=== PATIENT | female | born 1945 | race Caucasian/White ===

== ENCOUNTER 2023-07-20 09:55 | Inpatient (IN) | payer MEDICARE, OTHER ==
[2023-07-20 10:34] LABS: HEMATOCRIT 32.6 % (34.2-48.2); HEMOGLOBIN 10.8 g/dL (11.4-15.5); MEAN CORPUSCULAR HEMOGLOBIN 30.1 pg (23.9-33.9); MEAN CORPUSCULAR VOLUME 91.2 fL (76.7-100.5); MEAN PLATELET VOLUME 7.2 fL (7.1-12.4); PLATELET COUNT,PLT 128 x10(3)uL (151-488); RED BLOOD CELL COUNT 3.58 x10(6)uL (3.60-5.20); WHITE BLOOD CELL COUNT,WBC 8.8 x10-3/uL (3.0-10.3)
[2023-07-20] MEDS: Sodium Chloride 0.9% 1,000 ML IV SCH ×2 (10:35→16:38)
[2023-07-20 10:41] LABS: BLOOD UREA NITROGEN,BUN 41 mg/dL (7-18); BUN/CREATININE RATIO 37.3 (9-20); CARBON DIOXIDE,CO2 27 mmol/L (21-32); CHLORIDE,CL 98 mmol/L (100-110); CREATININE 1.1 mg/dL (0.55-1.02); ESTIMATED GFR 51 mL/min (>60); GLUCOSE RANDOM 110 mg/dL (80-116); POTASSIUM,K 4.4 mmol/L (3.5-5.3); SODIUM,NA 133 mmol/L (135-145)
[2023-07-20] MEDS: Morphine 4 MG/ML VIAL IVPUSH ONE (10:45)
[2023-07-20 10:47] LABS: A/G RATIO 0.6; ALANINE AMINOTRANSFERASE,ALT 64 U/L (12-36); ALBUMIN 2.6 g/dL (3.2-4.6); ALKALINE PHOSPHATASE 134 IU/L (56-112); ASPARTATE AMNIOTRANSFERASE,AST 72 IU/L (5-25); BILIRUBIN TOTAL 0.7 mg/dL (0.1-1.3); CREATINE KINASE,CK 38 IU/L (60-160); PROTEIN TOTAL,TP 6.8 g/dL (6.0-8.0)
[2023-07-20 10:55] LABS: LYMPHOCYTES PERCENT MAN 5 % (13-37); MONOCYTES PERCENT MAN 8 % (4-12); SEG NEUTROPHILS PERCENT MAN 87 % (46-82)
[2023-07-20 11:30] LABS: BILIRUBIN,URINE NEGATIVE (NEGATIVE); GLUCOSE,URINE NORMAL (NORMAL); KETONES,URINE NEGATIVE (NEGATIVE); LEUKOCYTE ESTERASE,URINE LARGE (NEGATIVE); NITRITE,URINE NEGATIVE (NEGATIVE); OCCULT BLOOD,URINE NEGATIVE (NEGATIVE); PROTEIN,URINE NEGATIVE (NEGATIVE); UROBILINOGEN,URINE NORMAL (NEGATIVE)
[2023-07-20 11:31] LABS: APPEARANCE,URINE SLIGHTLY CLOUDY (CLEAR); COLOR,URINE YELLOW (YELLOW); RBC,URINE NOT SEEN (0-5)
[2023-07-20 11:32] LABS: BACTERIA,URINE MODERATE (NS); SQUAMOUS EPITHELIAL CELLS,UR RARE (NS,R,O)
[2023-07-20] MEDS: Cyclobenzaprine 10 MG Tab PO ONE (12:55)
[2023-07-20] MEDS: HYDROmorphone 2 MG/ML SDV IVPUSH STA (14:02)
[2023-07-20] MEDS: cefTRIAXone 1 GM Vial IVPUSH SCH (16:49)
[2023-07-20] MEDS ORDERED: Sennosides/Docusate Sodium 50-8.6 MG Tab PO PRN (17:48)
[2023-07-20] MEDS ORDERED: Ondansetron 4 MG/2 ML SDV IV PRN (17:48)
[2023-07-20] MEDS: Carvedilol 25 MG Tab PO SCH (18:03)
[2023-07-20] MEDS: atorvaSTATin 20 MG Tab PO SCH (21:31)
[2023-07-20] MEDS: Gabapentin 300 MG Cap PO SCH (21:31)
[2023-07-20] MEDS: Apixaban 5 MG Tab PO SCH (21:31)
[2023-07-21] MEDS: Acetaminophen/HYDROcodone 325-5 MG Tab PO PRN (03:09)
[2023-07-21 06:03] LABS: HEMATOCRIT 32.2 % (34.2-48.2); HEMOGLOBIN 10.5 g/dL (11.4-15.5); MEAN CORPUSCULAR HEMOGLOBIN 29.8 pg (23.9-33.9); MEAN CORPUSCULAR HGB CONC 32.5 g/dL (31.9-34.8); MEAN CORPUSCULAR VOLUME 91.9 fL (76.7-100.5); MEAN PLATELET VOLUME 7.6 fL (7.1-12.4); PLATELET COUNT,PLT 111 x10(3)uL (151-488); RED BLOOD CELL COUNT 3.51 x10(6)uL (3.60-5.20); WHITE BLOOD CELL COUNT,WBC 11.1 x10-3/uL (3.0-10.3)
[2023-07-21 06:16] LABS: A/G RATIO 0.6; ALANINE AMINOTRANSFERASE,ALT 52 U/L (12-36); ALBUMIN 2.3 g/dL (3.2-4.6); ALKALINE PHOSPHATASE 131 IU/L (56-112); ASPARTATE AMNIOTRANSFERASE,AST 55 IU/L (5-25); BILIRUBIN TOTAL 0.5 mg/dL (0.1-1.3); BLOOD UREA NITROGEN,BUN 35 mg/dL (7-18); BUN/CREATININE RATIO 31.8 (9-20); CALCIUM 8.4 mg/dL (8.6-10.2); CARBON DIOXIDE,CO2 27 mmol/L (21-32); CHLORIDE,CL 100 mmol/L (100-110); CREATININE 1.1 mg/dL (0.55-1.02); EST CRCL DRUG DOSING (CG) 35.81 mL/min; ESTIMATED GFR 51 mL/min (>60); GLUCOSE RANDOM 92 mg/dL (80-116); POTASSIUM,K 4.4 mmol/L (3.5-5.3); PROTEIN TOTAL,TP 6.5 g/dL (6.0-8.0); SODIUM,NA 133 mmol/L (135-145)
[2023-07-21 06:19] LABS: LYMPHOCYTES PERCENT MAN 4 % (13-37); MONOCYTES PERCENT MAN 5 % (4-12); SEG NEUTROPHILS PERCENT MAN 91 % (46-82)
[2023-07-21] MEDS ORDERED: oxyCODONE 5 MG Tab PO SCH (08:45)
[2023-07-21] MEDS ORDERED: Gabapentin 600 MG Tab PO SCH (09:00)
[2023-07-21] MEDS: Cyclobenzaprine 10 MG Tab PO SCH (09:59)
[2023-07-21] MEDS: Aspirin 81 MG Tab.EC PO SCH (09:59)
[2023-07-21] MEDS: Multivitamins with Iron/Calcium/Folic Acid/Minerals Tab PO SCH (10:00)
[2023-07-21] MEDS: Calcium Carbonate 500 MG Tablet PO SCH (10:00)
[2023-07-21] MEDS: oxyCODONE 5 MG Tab PO SCH (10:13)
[2023-07-21] MEDS: Gabapentin 600 MG Tab PO SCH (10:14)
[2023-07-21] MEDS: Acetaminophen 650 MG Tab.ER PO SCH (10:21)
[2023-07-21] MEDS: Sodium Chloride 0.9% 10 ML Syringe FLUSH PRN (15:58)
[2023-07-21] MEDS: atorvaSTATin 10 MG Tab PO SCH (22:22)
[2023-07-22 06:42] LABS: HEMATOCRIT 27.9 % (34.2-48.2); HEMOGLOBIN 9.3 g/dL (11.4-15.5); MEAN CORPUSCULAR HEMOGLOBIN 30.3 pg (23.9-33.9); MEAN CORPUSCULAR HGB CONC 33.2 g/dL (31.9-34.8); MEAN CORPUSCULAR VOLUME 91.4 fL (76.7-100.5); MEAN PLATELET VOLUME 8.1 fL (7.1-12.4); PLATELET COUNT,PLT 97 x10(3)uL (151-488); RED BLOOD CELL COUNT 3.05 x10(6)uL (3.60-5.20); WHITE BLOOD CELL COUNT,WBC 7.9 x10-3/uL (3.0-10.3)
[2023-07-22 06:50] LABS: A/G RATIO 0.5; ALANINE AMINOTRANSFERASE,ALT 38 U/L (12-36); ALKALINE PHOSPHATASE 128 IU/L (56-112); ASPARTATE AMNIOTRANSFERASE,AST 38 IU/L (5-25); BILIRUBIN TOTAL 0.4 mg/dL (0.1-1.3); BLOOD UREA NITROGEN,BUN 36 mg/dL (7-18); BUN/CREATININE RATIO 32.7 (9-20); CALCIUM 8.6 mg/dL (8.6-10.2); CARBON DIOXIDE,CO2 28 mmol/L (21-32); CHLORIDE,CL 97 mmol/L (100-110); CREATININE 1.1 mg/dL (0.55-1.02); EST CRCL DRUG DOSING (CG) 35.81 mL/min; ESTIMATED GFR 51 mL/min (>60); GLUCOSE RANDOM 100 mg/dL (80-116); POTASSIUM,K 4.5 mmol/L (3.5-5.3); PROTEIN TOTAL,TP 5.9 g/dL (6.0-8.0); SODIUM,NA 131 mmol/L (135-145)
[2023-07-22 07:07] LABS: BAND PERCENT MAN 1 % (0-6); EOSINOPHILS PERCENT MAN 1 % (0-5); LYMPHOCYTES PERCENT MAN 14 % (13-37); MONOCYTES PERCENT MAN 9 % (4-12); SEG NEUTROPHILS PERCENT MAN 75 % (46-82)
[2023-07-22] MEDS ORDERED: oxyCODONE 5 MG Tab PO PRN ×2 (08:48→11:10)
[2023-07-22] MEDS: traMADol 50 MG Tab PO PRN (18:31)
[2023-07-22] MEDS: Baclofen 10 MG Tab PO SCH (21:38)
[2023-07-23 06:47] LABS: BASOPHILS PERCENT AUTO 0.6 % (0.2-1.5); EOSINOPHILS ABSOLUTE AUTO 0.1 x10-3/uL (0.0-0.8); EOSINOPHILS PERCENT AUTO 1.9 % (0.6-8.1); HEMATOCRIT 31.8 % (34.2-48.2); HEMOGLOBIN 10.5 g/dL (11.4-15.5); LYMPHOCYTES ABSOLUTE AUTO 0.9 x10-3/uL (1.0-4.4); LYMPHOCYTES PERCENT AUTO 12.3 % (18.4-52.1); MEAN CORPUSCULAR HEMOGLOBIN 30.2 pg (23.9-33.9); MEAN CORPUSCULAR HGB CONC 33.1 g/dL (31.9-34.8); MEAN CORPUSCULAR VOLUME 91.1 fL (76.7-100.5); MEAN PLATELET VOLUME 7.2 fL (7.1-12.4); MONOCYTES ABSOLUTE AUTO 1.1 x10-3/uL (0.3-1.0); MONOCYTES PERCENT AUTO 15.1 % (4.4-15.7); NEUTROPHILS PERCENT AUTO 70.1 % (30.8-76.2); PLATELET COUNT,PLT 135 x10(3)uL (151-488); RED BLOOD CELL COUNT 3.48 x10(6)uL (3.60-5.20); RED CELL DISTRIBUTION WIDTH 15.6 % (12.3-16.5); WHITE BLOOD CELL COUNT,WBC 7.1 x10-3/uL (3.0-10.3)
[2023-07-23 06:51] LABS: BLOOD UREA NITROGEN,BUN 26 mg/dL (7-18); CARBON DIOXIDE,CO2 29 mmol/L (21-32); CHLORIDE,CL 101 mmol/L (100-110); EST CRCL DRUG DOSING (CG) 39.39 mL/min; ESTIMATED GFR 57 mL/min (>60); GLUCOSE RANDOM 97 mg/dL (80-116); POTASSIUM,K 4.6 mmol/L (3.5-5.3); SODIUM,NA 136 mmol/L (135-145)
[2023-07-23] MEDS: Ketorolac 30 MG/ML SDV IVPUSH SCH (17:04)
[2023-07-23 19:47] VITALS: BP 155/75; PULSE 61
== END 2023-07-23 19:08 | DRG 73 ==
LOC: FB.ED 09:55 → FB.MS 17:59
PROVIDERS: ADMIT Emergency Medicine; ATTEND Family Medicine
DX: G83.4 Cauda equina syndrome (principal); G92.8 Other toxic encephalopathy; I48.19 Other persistent atrial fibrillation; I42.0 Dilated cardiomyopathy; N39.0 Urinary tract infection, site not specified; E87.1 Hypo-osmolality and hyponatremia; Z68.43 Body mass index [BMI] 50.0-59.9, adult; S30.0XXA Contusion of lower back and pelvis, initial encounter; M54.41 Lumbago with sciatica, right side; R33.9 Retention of urine, unspecified; W07.XXXA Fall from chair, initial encounter; E78.5 Hyperlipidemia, unspecified; K42.9 Umbilical hernia without obstruction or gangrene; E66.01 Morbid (severe) obesity due to excess calories; D64.9 Anemia, unspecified; I11.0 Hypertensive heart disease with heart failure; E86.0 Dehydration; I50.9 Heart failure, unspecified; Z88.0 Allergy status to penicillin; Z88.1 Allergy status to other antibiotic agents; Z79.82 Long term (current) use of aspirin; Z79.01 Long term (current) use of anticoagulants; Z95.0 Presence of cardiac pacemaker; Z96.659 Presence of unspecified artificial knee joint; Z79.899 Other long term (current) drug therapy; W01.0XXA Fall on same level from slipping, tripping and stumbling without subsequent striking against object, initial encounter
CPT/HCPCS: 36415; 51701; 51702; 72125; 72128; 72131; 73521; 73560-50; 80048; 80053; 81001; 82550; 83880; 84484; 85025; 87086; 93005; 93010; 96361; 96374; 96375; 97161-GP; 97165-GO; 97530-GP; 99222; 99232; 99239; 99285; 99285-25; A9270-GY; C1758; J0696; J1170; J2270; J3490; J7030

== ENCOUNTER 2023-11-18 15:23 | Observation (INO) | payer MEDICARE, OTHER ==
[2023-11-18 16:46] LABS: BASOPHILS PERCENT AUTO 0.5 % (0.2-1.5); EOSINOPHILS PERCENT AUTO 0.6 % (0.6-8.1); HEMATOCRIT 32.3 % (34.2-48.2); HEMOGLOBIN 10.8 g/dL (11.4-15.5); LYMPHOCYTES ABSOLUTE AUTO 0.9 x10-3/uL (1.0-4.4); LYMPHOCYTES PERCENT AUTO 13.3 % (18.4-52.1); MEAN CORPUSCULAR HEMOGLOBIN 30.4 pg (23.9-33.9); MEAN CORPUSCULAR HGB CONC 33.5 g/dL (31.9-34.8); MEAN CORPUSCULAR VOLUME 90.8 fL (76.7-100.5); MEAN PLATELET VOLUME 6.2 fL (7.1-12.4); MONOCYTES ABSOLUTE AUTO 0.8 x10-3/uL (0.3-1.0); NEUTROPHILS ABSOLUTE AUTO 4.8 x10-3/uL (1.5-6.3); NEUTROPHILS PERCENT AUTO 73.6 % (30.8-76.2); PLATELET COUNT,PLT 178 x10(3)uL (151-488); RED BLOOD CELL COUNT 3.56 x10(6)uL (3.60-5.20); RED CELL DISTRIBUTION WIDTH 16.3 % (12.3-16.5); WHITE BLOOD CELL COUNT,WBC 6.5 x10-3/uL (3.0-10.3)
[2023-11-18 16:48] LABS: BLOOD UREA NITROGEN,BUN 24 mg/dL (7-18); CALCIUM 8.9 mg/dL (8.6-10.2); CARBON DIOXIDE,CO2 30 mmol/L (21-32); CHLORIDE,CL 100 mmol/L (100-110); CREATININE 1.6 mg/dL (0.55-1.02); EST CRCL DRUG DOSING (CG) 23.58 mL/min; ESTIMATED GFR 33 mL/min (>60); GLUCOSE RANDOM 114 mg/dL (80-116); POTASSIUM,K 4.3 mmol/L (3.5-5.3); SODIUM,NA 136 mmol/L (135-145)
[2023-11-18 16:59] LABS: A/G RATIO 0.7; ALANINE AMINOTRANSFERASE,ALT 30 U/L (12-36); ALBUMIN 2.8 g/dL (3.2-4.6); ALKALINE PHOSPHATASE 80 IU/L (56-112); ASPARTATE AMNIOTRANSFERASE,AST 23 IU/L (5-25); BILIRUBIN TOTAL 0.5 mg/dL (0.1-1.3); MAGNESIUM 1.8 mg/dL (1.8-2.5); PROTEIN TOTAL,TP 6.9 g/dL (6.0-8.0)
[2023-11-18] MEDS ORDERED: Naloxone 0.4 MG/ML SDV IVPUSH PRN ×2 (18:22→21:45)
[2023-11-18] MEDS: Iopamidol 755 Mg/ML 100 ML Bottle IV SCH (18:23)
[2023-11-18] MEDS: fentaNYL 100 MCG/2 ML SDV IVPUSH ONE (18:34)
[2023-11-18] MEDS: Ondansetron 4 MG/2 ML SDV IVPUSH ONE (18:37)
[2023-11-18] MEDS: Morphine 2 MG/ML SYRINGE IVPUSH ONE (19:09)
[2023-11-18] MEDS: Sodium Chloride 0.9% 500 ML IV ONE (19:15)
[2023-11-18] MEDS ORDERED: Ondansetron 4 MG/2 ML SDV IV PRN (21:38)
[2023-11-18] MEDS ORDERED: Acetaminophen/HYDROcodone 325-5 MG Tab PO PRN (21:45)
[2023-11-18] MEDS: Acetaminophen 325 MG Tab PO PRN (22:44)
[2023-11-18] MEDS: Apixaban 5 MG Tab PO SCH (22:44)
[2023-11-18] MEDS: Pantoprazole 40 MG Vial IVPUSH SCH (22:51)
[2023-11-18] MEDS: Sodium Chloride 0.9% 10 ML Syringe FLUSH PRN (22:55)
[2023-11-18] MEDS: Sodium Chloride 0.9% 1,000 ML IV ONE (23:00)
[2023-11-18] MEDS: Gabapentin 400 MG Cap PO SCH (23:05)
[2023-11-18] MEDS: fentaNYL 100 MCG/2 ML SDV IVPUSH PRN (23:13)
[2023-11-19 06:39] LABS: HEMATOCRIT 27.1 % (34.2-48.2); HEMOGLOBIN 9.2 g/dL (11.4-15.5); MEAN CORPUSCULAR HEMOGLOBIN 30.9 pg (23.9-33.9); MEAN CORPUSCULAR HGB CONC 34.1 g/dL (31.9-34.8); MEAN CORPUSCULAR VOLUME 90.8 fL (76.7-100.5); MEAN PLATELET VOLUME 6.2 fL (7.1-12.4); PLATELET COUNT,PLT 146 x10(3)uL (151-488); RED BLOOD CELL COUNT 2.99 x10(6)uL (3.60-5.20); RED CELL DISTRIBUTION WIDTH 16.4 % (12.3-16.5); WHITE BLOOD CELL COUNT,WBC 6.6 x10-3/uL (3.0-10.3)
[2023-11-19 06:46] LABS: BLOOD UREA NITROGEN,BUN 19 mg/dL (7-18); BUN/CREATININE RATIO 17.3 (9-20); CARBON DIOXIDE,CO2 25 mmol/L (21-32); CHLORIDE,CL 103 mmol/L (100-110); CREATININE 1.1 mg/dL (0.55-1.02); ESTIMATED GFR 51 mL/min (>60); GLUCOSE RANDOM 103 mg/dL (80-116); POTASSIUM,K 4.1 mmol/L (3.5-5.3); SODIUM,NA 136 mmol/L (135-145)
[2023-11-19 07:02] LABS: LYMPHOCYTES PERCENT MAN 24 % (13-37); MONOCYTES PERCENT MAN 12 % (4-12); SEG NEUTROPHILS PERCENT MAN 64 % (46-82)
[2023-11-19] MEDS ORDERED: Carvedilol 25 MG Tab PO SCH (09:00)
[2023-11-19] MEDS ORDERED: Gabapentin 400 MG Cap PO SCH (09:00)
[2023-11-19] MEDS: Furosemide 20 MG Tab PO SCH (09:55)
[2023-11-19] MEDS: Sodium Chloride 0.9% 1,000 ML IV SCH (14:34)
[2023-11-19 18:46] VITALS: BP 126/46; PULSE 83
[2023-11-19] MEDS: fentaNYL 100 MCG/2 ML SDV IVPUSH PRN (18:51)
[2023-11-19] MEDS: VANCOmycin 2 GM/400 ML 2 GM in Premix Bag 1 BAG IV ONE (18:56)
[2023-11-19] MEDS: atorvaSTATin 10 MG Tab PO SCH (23:11)
[2023-11-20] MEDS ORDERED: VANCOmycin 1.25 GM/250 ML 1.25 GM in Premix Bag 1 BAG IV SCH (18:00)
== END 2023-11-19 20:40 ==
LOC: FB.ED 15:23 → FB.MS 22:00
PROVIDERS: ADMIT Emergency Medicine; ATTEND Internal Medicine
DX: M79.672 Pain in left foot (principal); G89.29 Other chronic pain; M54.50 Low back pain, unspecified; I11.0 Hypertensive heart disease with heart failure; I50.9 Heart failure, unspecified; I48.0 Paroxysmal atrial fibrillation; E66.9 Obesity, unspecified; I42.0 Dilated cardiomyopathy; E78.2 Mixed hyperlipidemia; Z88.1 Allergy status to other antibiotic agents; Z88.0 Allergy status to penicillin; Z79.899 Other long term (current) drug therapy; Z79.01 Long term (current) use of anticoagulants; Z68.30 Body mass index [BMI] 30.0-30.9, adult; Z95.0 Presence of cardiac pacemaker
CPT/HCPCS: 36415; 72125; 72128; 72131; 73630; 73700; 73706; 80048; 80053; 83605; 83735; 85025; 86140; 93005; 94150; 96374; 96375; 96376; 99222; 99238; 99285; A9270; G0378; J2405; J2470; J3010; J3372; J3490; J7030; J7040; Q9967; 93010